=== PATIENT | female | born 1970 | race Asian ===

== ENCOUNTER 2019-10-30 21:28 | Emergency (ER) | payer SELFPAY ==
[2019-10-30 22:11] VITALS: BP 137/98
[2019-10-30 23:58] LABS: ABSOLUTE LYMPHOCYTES (AUTO) 2.5 10^3/uL (0.5-4.7); ABSOLUTE MONOCYTES (AUTO) 0.4 10^3/uL (0.1-1.4); ABSOLUTE NEUT (AUTO) 5.2 10^3/uL (1.7-8.2); BASOPHILS % (AUTO) 0.3 % (0-2); EOSINOPHILS % (AUTO) 0.5 % (0-6); HEMATOCRIT 45.7 % (36.0-47.0); HEMOGLOBIN 16.4 g/dL (12.0-15.5); LYMPHOCYTES % (AUTO) 30.4 % (13-45); MEAN CORPUSCULAR HEMOGLOBIN 33.1 pg (27.0-33.4); MEAN CORPUSCULAR HGB CONC 35.9 g/dL (32.0-36.0); MEAN CORPUSCULAR VOLUME 92 fl (80-97); MONOCYTES % (AUTO) 4.6 % (3-13); PLATELET COUNT 245 10^3/uL (150-450); RED BLOOD COUNT 4.96 10^6/uL (3.72-5.28); RED CELL DISTRIBUTION WIDTH 15.6 % (11.5-14.0); SEGMENTED NEUTROPHILS % (AUTO) 64.2 % (42-78); TOTAL CELLS COUNTED % (AUTO) 100 %; WHITE BLOOD COUNT 8.2 10^3/uL (4.0-10.5)
[2019-10-31] MEDS ORDERED: NORMAL SALINE 1000 ML 1,000 ML IV ONE (00:27)
--- NOTE | 2019-10-31 00:30 | ER Document Report ---
ED Medical Screen (RME) - General Chief Complaint: Abdominal Pain Stated Complaint: CHEST PAIN, ABDOMINAL PAIN Time Seen by Provider: 10/30/19 23:52 Primary Care Provider: MARYANA ROMERO MD [Primary Care Provider] - Follow up as needed Notes: Patient is a 49-year-old female who presents to the emergency department with a chief complaint of chest pain, body aches, diarrhea, and generalized malaise. 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 Patient states that she has been around a lot of sick contacts. States that her entire abdomen hurts. Exam: Soft, mildly tender generalized abdomen. I have greeted and performed a rapid initial assessment of this patient. A comprehensive ED assessment and evaluation of the patient, analysis of test results and completion of medical decision making process will be conducted by an additional ED providers. TRAVEL OUTSIDE OF THE [place] IN LAST 30 DAYS: No - Related Data Allergies/Adverse Reactions: No Known Allergies Allergy (Unverified 10/31/19 00:19) Home Medications: GERD. PEPSID. NOVAX. HCTZ. MOTOPROLOL. XANAX Past Medical History - Social History Frequency of alcohol use: None Drug Abuse: None Physical Exam - Vital signs Vitals: Temp Pulse Resp BP Pulse Ox 98.1 F 73 18 137/98 H 100 10/30/19 22:10 10/30/19 22:10 10/30/19 22:10 10/30/19 22:10 10/30/19 22:10 Course - Vital Signs Vital signs: Temp Pulse Resp BP Pulse Ox 98.1 F 73 18 137/98 H 100 10/30/19 22:10 10/30/19 22:10 10/30/19 22:10 10/30/19 22:10 10/30/19 22:10 - Laboratory Result Diagrams: 10/30/19 23:25 10/30/19 23:25 Laboratory results interpreted by me: 10/30/19 23:25 Hgb 16.4 H RDW 15.6 H Doctor's Discharge - Discharge Referrals: MARYANA ROMERO MD [Primary Care Provider] - Follow up as needed
[2019-10-31 01:21] LABS: ALBUMIN 4.9 g/dL (3.5-5.0); ALKALINE PHOSPHATASE 147 U/L (38-126); ANION GAP 13 (5-19); ASPARTATE AMINO TRANSFERASE 368 U/L (14-36); BILIRUBIN,DIRECT 0.5 mg/dL (0.0-0.4); BLOOD UREA NITROGEN 15 mg/dL (7-20); CARBON DIOXIDE 28 mmol/L (22-30); CHLORIDE 95 mmol/L (98-107); CREATINE KINASE 280 U/L (30-135); GLUCOSE 114 mg/dL (75-110); POTASSIUM 3.9 mmol/L (3.6-5.0); TOTAL PROTEIN 9.3 g/dL (6.3-8.2)
--- NOTE | 2019-10-31 22:21 | EKG REPORT ---
SEVERITY:- NORMAL ECG - SINUS RHYTHM : Confirmed by: Rosemary Pereyra 31-Oct-2019 22:20:41
== END 2019-10-31 03:55 | disposition left against medical advice (07) ==
LOC: ER 21:28
DX: Z53.21 Procedure and treatment not carried out due to patient leaving prior to being seen by health care provider (principal); R10.9 Unspecified abdominal pain; R07.9 Chest pain, unspecified; M79.10 Myalgia, unspecified site; R19.7 Diarrhea, unspecified; R53.81 Other malaise; R10.84 Generalized abdominal pain; Z79.899 Other long term (current) drug therapy
CPT/HCPCS: 36415; 80053; 80307; 82550; 82553; 83690; 84484; 85025; 93005; 93010; 99281

== ENCOUNTER 2019-11-14 10:56 | Emergency (ER) | payer SELFPAY ==
--- NOTE | 2019-11-14 11:55 | ER Document Report ---
ED Medical Screen (RME) - General Chief Complaint: Cough Stated Complaint: COUGH Time Seen by Provider: 11/14/19 11:54 Primary Care Provider: MARYANA ROMERO MD [Primary Care Provider] - Follow up as needed Mode of Arrival: Ambulatory Information source: Patient Notes: 49-year-old female presented to ED for complaint of sick for 2 weeks. She states that she was here 2 weeks ago she was seen in the triage area and did not see in the back because she she left after waiting along. Patient is very angry and arguing that she has the couple of hours. I am trying to explain to her that she did have elevated liver enzymes and lipase last time we will redo her lab work and have her seen by 1 of the providers. I have greeted and performed a rapid initial assessment of this patient. A comprehensive ED assessment and evaluation of the patient, analysis of test results and completion of medical decision making process will be conducted by an additional ED providers. TRAVEL OUTSIDE OF THE [place] IN LAST 30 DAYS: No - Related Data Allergies/Adverse Reactions: No Known Allergies Allergy (Unverified 10/31/19 00:19) Physical Exam - Vital signs Vitals: Temp Pulse Resp BP Pulse Ox 97.6 F 100 16 141/94 H 98 11/14/19 11:44 11/14/19 11:44 11/14/19 11:44 11/14/19 11:44 11/14/19 11:44 Course - Vital Signs Vital signs: Temp Pulse Resp BP Pulse Ox 97.6 F 100 16 141/94 H 98 11/14/19 11:44 11/14/19 11:44 11/14/19 11:44 11/14/19 11:44 11/14/19 11:44 Doctor's Discharge - Discharge Referrals: MARYANA ROMERO MD [Primary Care Provider] - Follow up as needed
[2019-11-14 12:50] LABS: ABSOLUTE BASOPHILS # (AUTO) 0.1 10^3/uL (0.0-0.2); ABSOLUTE LYMPHOCYTES (AUTO) 3.2 10^3/uL (0.5-4.7); ABSOLUTE MONOCYTES (AUTO) 0.3 10^3/uL (0.1-1.4); ABSOLUTE NEUT (AUTO) 2.2 10^3/uL (1.7-8.2); BASOPHILS % (AUTO) 1.8 % (0-2); EOSINOPHILS % (AUTO) 0.1 % (0-6); HEMATOCRIT 43.3 % (36.0-47.0); HEMOGLOBIN 14.6 g/dL (12.0-15.5); LYMPHOCYTES % (AUTO) 54.9 % (13-45); MEAN CORPUSCULAR HEMOGLOBIN 31.7 pg (27.0-33.4); MEAN CORPUSCULAR HGB CONC 33.8 g/dL (32.0-36.0); MEAN CORPUSCULAR VOLUME 94 fl (80-97); MONOCYTES % (AUTO) 5.7 % (3-13); PLATELET COUNT 413 10^3/uL (150-450); RED BLOOD COUNT 4.62 10^6/uL (3.72-5.28); RED CELL DISTRIBUTION WIDTH 15.6 % (11.5-14.0); SEGMENTED NEUTROPHILS % (AUTO) 37.5 % (42-78); TOTAL CELLS COUNTED % (AUTO) 100 %; WHITE BLOOD COUNT 5.9 10^3/uL (4.0-10.5)
[2019-11-14 13:08] LABS: ALKALINE PHOSPHATASE 95 U/L (38-126); ANION GAP 13 (5-19); ASPARTATE AMINO TRANSFERASE 97 U/L (14-36); BILIRUBIN,DIRECT 0.1 mg/dL (0.0-0.4); BILIRUBIN,TOTAL 0.5 mg/dL (0.2-1.3); BLOOD UREA NITROGEN 15 mg/dL (7-20); CALCIUM 10.4 mg/dL (8.4-10.2); CARBON DIOXIDE 33 mmol/L (22-30); CHLORIDE 98 mmol/L (98-107); GLUCOSE 141 mg/dL (75-110); POTASSIUM 4.4 mmol/L (3.6-5.0); TOTAL PROTEIN 9.1 g/dL (6.3-8.2)
--- NOTE | 2019-11-14 13:36 | RADIOLOGY REPORT (SQ) ---
EXAM DESCRIPTION: U/S ABDOMEN LTD W/DOPPLER COMPLETED DATE/TIME: 11/14/2019 1:13 pm REASON FOR STUDY: Elevated enzymes COMPARISON: None. TECHNIQUE: Dynamic and static grayscale images acquired of the abdomen and recorded on PACS. Additio nal selected color Doppler and spectral images recorded. LIMITATIONS: None. FINDINGS: PANCREAS: The visualized portions of the pancreas appear normal. LIVER: Increased echogenicity of the hepatic parenchyma compared to the adjacent renal parenchyma. LIVER VASCULATURE: Hepatopetal directional flow within the portal veins. GALLBLADDER: The gallbladder wall measures 2.8 mm and thickness. There is no cholelithiasis, sludge or pericholecystic fluid. ULTRASOUND-DETECTED BLAIR'S SIGN: Negative. INTRAHEPATIC DUCTS AND COMMON DUCT: The common bile duct measures 5 mm in diameter. The intrahepatic bile ducts are normal in caliber. INFERIOR VENA CAVA: Patent. AORTA: No aneurysm. RIGHT KIDNEY: The right kidney measures 9.4 cm in length. There is no hydronephrosis. PERITONEAL AND RIGHT PLEURAL SPACE: No ascites or effusions. OTHER: No other findings. IMPRESSION: 1. Increased echogenicity of the hepatic parenchyma. The finding is nonspecific and is typical in the setting of diffuse hepatocellular disease, most commonly hepatic steatosis. 2. Normal appearance of the gallbladder and right kidney. TECHNICAL DOCUMENTATION: JOB ID: [id number] 2010 [employer]- All Rights Reserved Reading location - IP/workstation name: [email or web address]
[2019-11-14 13:46] LABS: APPEARANCE,URINE CLEAR; BILIRUBIN,URINE NEGATIVE (NEGATIVE); COLOR,URINE STRAW; GLUCOSE, URINE NEGATIVE (NEGATIVE); KETONES,URINE NEGATIVE (NEGATIVE); PROTEIN,URINE NEGATIVE (NEGATIVE); URINE SPECIFIC GRAVITY 1.008; UROBILINOGEN,URINE NEGATIVE mg/dL (<2.0)
--- NOTE | 2019-11-14 14:11 | ER Document Report ---
ED General - General Chief Complaint: Cold Symptoms Stated Complaint: COUGH Time Seen by Provider: 11/14/19 11:54 Primary Care Provider: MARYANA ROMERO MD [Primary Care Provider] - Follow up as needed Mode of Arrival: Ambulatory TRAVEL OUTSIDE OF THE [place] IN LAST 30 DAYS: No COUNTRY TRAVELED TO/FROM: matt - [facility] Notes: Patient states that she has had cough cold and chills and that she has had this intermittently now for approximately 2 weeks. 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 Patient does not currently have any fever nor coughing. When she is had the cough is been nonproductive and dry. Patient cannot give me any reason why she may have coronavirus other than she is around homeless people. She has had no traveling or other exposures. No vomiting or diarrhea. 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 - Related Data Allergies/Adverse Reactions: No Known Allergies Allergy (Unverified 10/31/19 00:19) Past Medical History - General Information source: Patient - Social History Smoking Status: Never Smoker Frequency of alcohol use: None Drug Abuse: None Family History: Reviewed & Not Pertinent Patient has suicidal ideation: No Patient has homicidal ideation: No Review of Systems - Review of Systems Constitutional: Chills, Recent illness Cardiovascular: denies: Chest pain, Palpitations Respiratory: Cough, Short of breath -: Yes All other systems reviewed and negative Physical Exam - Vital signs Vitals: Temp Pulse Resp BP Pulse Ox 97.6 F 100 16 141/94 H 98 11/14/19 11:44 11/14/19 11:44 11/14/19 11:44 11/14/19 11:44 11/14/19 11:44 Interpretation: Normal - General General appearance: Appears well, Alert - HEENT Head: Normocephalic, Atraumatic Eyes: Normal Pupils: PERRL - Respiratory Respiratory status: No respiratory distress Chest status: Nontender Breath sounds: Normal Chest palpation: Normal - Cardiovascular Rhythm: Regular Heart sounds: Normal auscultation Murmur: No - Abdominal Inspection: Normal Distension: No distension Bowel sounds: Normal Tenderness: Nontender Organomegaly: No organomegaly - Back Back: Normal, Nontender - Extremities General upper extremity: Normal inspection, Nontender, Normal color, Normal ROM, Normal temperature General lower extremity: Normal inspection, Nontender, Normal color, Normal ROM, Normal temperature, Normal weight bearing. No: Doris's sign - Neurological Neuro grossly intact: Yes Cognition: Normal Orientation: AAOx4 Herbert Coma Scale Eye Opening: Spontaneous Herbert Coma Scale Verbal: Oriented [place] Coma Scale Motor: Obeys Commands Herbert Coma Scale Total: 15 Speech: Normal Motor strength normal: LUE, RUE, LLE, RLE Sensory: Normal - Psychological Associated symptoms: Normal affect, Normal mood - Skin Skin Temperature: Warm Skin Moisture: Dry Skin Color: Normal Course - Vital Signs Vital signs: Temp Pulse Resp BP Pulse Ox 97.6 F 100 16 141/94 H 98 11/14/19 11:44 11/14/19 11:44 11/14/19 11:44 11/14/19 11:44 11/14/19 11:44 - Laboratory Result Diagrams: 11/14/19 12:37 11/14/19 12:37 Laboratory results interpreted by me: 11/14/19 11/14/19 11/14/19 12:37 12:37 12:47 RDW 15.6 H Lymph % (Auto) 54.9 H Seg Neutrophils % 37.5 L Carbon Dioxide 33 H Glucose 141 H Calcium 10.4 H AST 97 H ALT 38 H Total Protein 9.1 H Urine Ascorbic Acid 20 H - Diagnostic Test Radiology reviewed: Image reviewed, Reports reviewed Discharge - Discharge Clinical Impression: Viral syndrome, Hepatic steatosis Condition: Stable Disposition: HOME, SELF-CARE Instructions: Viral Syndrome ([facility]) Additional Instructions: You have evidence of hepatic steatosis, otherwise known as "fatty liver". It is going to be very important that you have your primary care physician regularity monitor your liver function. Please contact your primary care provider as soon as possible to initiate the monitoring of your "fatty liver". Forms: Return to Work Referrals: MARYANA ROMERO MD [Primary Care Provider] - Follow up tomorrow
[2019-11-14 15:35] VITALS: BP 135/91
== END 2019-11-14 15:25 | disposition home or self-care (01) ==
LOC: ER 10:56
DX: B34.9 Viral infection, unspecified (principal); K76.0 Fatty (change of) liver, not elsewhere classified; R68.83 Chills (without fever); R05 Cough; R06.02 Shortness of breath
CPT/HCPCS: 36415; 76705; 80053; 81001; 83690; 85025; 93976; 99284

== ENCOUNTER 2019-11-17 16:36 | Emergency (ER) | payer SELFPAY ==
[2019-11-17] MEDS ORDERED: ONDANSETRON HCL INJ/PF 4 MG/2 ML SDV IV ONE ×2 (16:52→20:34)
[2019-11-17] MEDS ORDERED: NORMAL SALINE 1000 ML 1,000 ML IV ONE ×2 (16:52→20:15)
--- NOTE | 2019-11-17 16:55 | ER Document Report ---
ED Medical Screen (RME) - General Stated Complaint: COUGH/CONGESTION/NAUSEA Time Seen by Provider: 11/17/19 16:46 Notes: HPI: 49-year-old female presenting to the emergency department for reevaluation of nausea vomiting diarrhea as well as cough. Patient states she was seen here 3 days ago for same complaint feels no better. Does not have a primary care provider for follow-up. States roommate is sick with similar symptoms. I have greeted and performed a rapid initial assessment of this patient. A comprehensive ED assessment and evaluation of the patient, analysis of test results and completion of the medical decision making process will be conducted by additional ED providers PHYSICAL EXAMINATION: GENERAL: Well-appearing, well-nourished and in no acute distress. HEAD: Atraumatic, normocephalic. EYES: sclera anicteric, conjunctiva are normal. ENT: Moist mucous membranes. NECK: Normal range of motion LUNGS: Normal work of breathing, decreased lung sounds bilaterally with congested cough noted HEART: 2+ radial pulses bilaterally, mild tachycardia ABD: limited by positioning for exam in triage. Mild generalized abdominal soreness on palpation EXTREMITIES: no pitting or edema. No cyanosis. NEUROLOGICAL: No focal neurological deficits. Moves all extremities spontaneously and on command. PSYCH: Normal mood, normal affect. SKIN: Warm, Dry, normal turgor, no rashes or lesions noted. TRAVEL OUTSIDE OF THE [place] IN LAST 30 DAYS: No COUNTRY TRAVELED TO/FROM: matt - Related Data Allergies/Adverse Reactions: No Known Allergies Allergy (Verified 11/17/19 16:44) Physical Exam - Vital signs Vitals: Temp Pulse Resp BP Pulse Ox 98.2 F 116 H 16 139/95 H 97 11/17/19 16:44 11/17/19 16:44 11/17/19 16:44 11/17/19 16:44 11/17/19 16:44 Course - Vital Signs Vital signs: Temp Pulse Resp BP Pulse Ox 98.2 F 116 H 16 139/95 H 97 11/17/19 16:44 11/17/19 16:44 11/17/19 16:44 11/17/19 16:44 11/17/19 16:44
[2019-11-17 17:35] LABS: ABSOLUTE BASOPHILS # (AUTO) 0.1 10^3/uL (0.0-0.2); ABSOLUTE LYMPHOCYTES (AUTO) 1.5 10^3/uL (0.5-4.7); ABSOLUTE MONOCYTES (AUTO) 0.3 10^3/uL (0.1-1.4); ABSOLUTE NEUT (AUTO) 2.8 10^3/uL (1.7-8.2); BASOPHILS % (AUTO) 1.2 % (0-2); EOSINOPHILS % (AUTO) 0.3 % (0-6); HEMATOCRIT 43.6 % (36.0-47.0); HEMOGLOBIN 14.9 g/dL (12.0-15.5); LYMPHOCYTES % (AUTO) 31.6 % (13-45); MEAN CORPUSCULAR HEMOGLOBIN 31.6 pg (27.0-33.4); MEAN CORPUSCULAR HGB CONC 34.1 g/dL (32.0-36.0); MEAN CORPUSCULAR VOLUME 93 fl (80-97); MONOCYTES % (AUTO) 6.3 % (3-13); PLATELET COUNT 305 10^3/uL (150-450); RED CELL DISTRIBUTION WIDTH 14.9 % (11.5-14.0); SEGMENTED NEUTROPHILS % (AUTO) 60.6 % (42-78); TOTAL CELLS COUNTED % (AUTO) 100 %; WHITE BLOOD COUNT 4.7 10^3/uL (4.0-10.5)
[2019-11-17 17:51] LABS: A TYPE INFLUENZA AG NEGATIVE (NEGATIVE); ALBUMIN 4.7 g/dL (3.5-5.0); ALKALINE PHOSPHATASE 105 U/L (38-126); ANION GAP 12 (5-19); B INFLUENZA AG NEGATIVE (NEGATIVE); BILIRUBIN,DIRECT 0.7 mg/dL (0.0-0.4); BLOOD UREA NITROGEN 15 mg/dL (7-20); CALCIUM 10.1 mg/dL (8.4-10.2); CARBON DIOXIDE 30 mmol/L (22-30); CHLORIDE 96 mmol/L (98-107); GLUCOSE 207 mg/dL (75-110); POTASSIUM 4.4 mmol/L (3.6-5.0); TOTAL PROTEIN 8.7 g/dL (6.3-8.2)
--- NOTE | 2019-11-17 17:53 | RADIOLOGY REPORT (SQ) ---
EXAM DESCRIPTION: CHEST 2 VIEWS COMPLETED DATE/TIME: 11/17/2019 5:39 pm REASON FOR STUDY: cough COMPARISON: None. TECHNIQUE: Frontal and lateral radiographic views of the chest acquired. NUMBER OF VIEWS: Two view. LIMITATIONS: None. FINDINGS: LUNGS AND PLEURA: No pneumothorax. No consolidation or pleural effusion. MEDIASTINUM AND HILAR STRUCTURES: No contour abnormalities. HEART AND VASCULAR STRUCTURES: Heart normal size. BONES: No acute findings. HARDWARE: None in the chest. OTHER: No other significant finding. IMPRESSION: NO ACUTE FINDINGS. TECHNICAL DOCUMENTATION: JOB ID: [id number] [place]-72 2010 [employer]- All Rights Reserved Reading location - IP/workstation name: [email or web address]
[2019-11-17 18:20] LABS: ASPARTATE AMINO TRANSFERASE 2453 U/L (14-36)
[2019-11-17 19:00] LABS: ACETAMINOPHEN < 10 ug/mL (10-30); ALCOHOL 148 mg/dL (NONE DETECTED)
[2019-11-17 20:32] LABS: INTERNATIONAL RATION (INR) 1.46; PROTHROMBIN TIME 17.9 SEC (11.4-15.4)
[2019-11-17 20:33] LABS: PARTIAL THROMBOPLASTIN TIME 39.5 SEC (23.5-35.8)
[2019-11-17] MEDS ORDERED: MORPHINE SULFATE 10 MG/ML INJ IV ONE (20:33)
--- NOTE | 2019-11-17 20:45 | RADIOLOGY REPORT (SQ) ---
EXAM DESCRIPTION: [facility]: US ABDOMEN LIMITED CLINICAL HISTORY: 49 years Female; abdominal pain/elevated LFTs; TECHNIQUE: Right upper quadrant ultrasound was performed. COMPARISON: None. FINDINGS: Pancreas: Visualized portions are unremarkable. Liver: 18 cm long, slightly echogenic. No ductal distention or focal lesion. Portal venous flow is hepatopedal, normal. Gallbladder: normal with no gallstones or sonographic evidence for acute cholecystitis. No pericholecystic fluid. No sonographic Whitaker's sign. Common bile duct: 3 mm. Right kidney: 11.7 cm long. No hydronephrosis. IMPRESSION: 1. Echogenic liver, suggesting hepatic steatosis. 2. Otherwise unremarkable right upper quadrant ultrasound
--- NOTE | 2019-11-18 00:06 | RADIOLOGY REPORT (SQ) ---
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 COMPARISON: None available TECHNIQUE: Axial contiguous images were obtained from the lung bases to the proximal femurs with intravenous intravenous contrast administered. Oral contrast was also given to the patient. Sagittal and coronal reconstructions were also obtained and reviewed. This exam was performed according to our departmental dose-optimization program, which includes automated exposure control, adjustment of the mA and/or KV according to the patient's size and/or use of iterative reconstruction technique. FINDINGS: No focal consolidative airspace opacities are seen. No discrete pleural effusion is seen. The visualized hepatic parenchyma is appears diffusely low in attenuation. No focal enhancing lesion is seen. The gallbladder demonstrates no evidence of calcified gallstones The spleen, pancreas, and adrenals are normal in size and contour. The kidneys demonstrate no evidence of hydronephrosis. Bladder is minimally distended, but grossly appears unremarkable. The uterus is surgically absent. The stomach is not well distended. The small bowel loops appear unremarkable. No pericolonic inflammatory stranding is seen. The appendix appears unremarkable. There is no evidence of pneumoperitoneum or free fluid. The aorta and IVC appear normal in size. No significantly enlarged lymph nodes are seen in the abdomen or pelvis. Review of the bone show no evidence of any suspicious lytic or blastic lesions. IMPRESSION: No acute process is seen within the abdomen or pelvis. Hepatic steatosis
[2019-11-18] MEDS ORDERED: IBUPROFEN 800 MG TABLET PO ONE (00:18)
[2019-11-18 00:23] VITALS: BP 127/80
[2019-11-18] MEDS ORDERED: PANTOPRAZOLE SODIUM 40 MG TABLET.DR PO ONE (01:13)
[2019-11-18] MEDS ORDERED: TRAMADOL HCL 50 MG TABLET PO ONE (01:13)
--- NOTE | 2019-11-18 13:35 | ER Document Report ---
Entered by ANGELINA GRAJEDA SCRIBE 11/17/19 1816 Acting as scribe for:JOE IRIZARRY MD ED General <JOSSUE CARRERA IV - Last Filed: 11/18/19 00:19> - General Mode of Arrival: Ambulatory Information source: Patient TRAVEL OUTSIDE OF THE [place] IN LAST 30 DAYS: No <JOE IRIZARRY - Last Filed: 11/18/19 13:35> - General Chief Complaint: Flu Symptoms Stated Complaint: COUGH/CONGESTION/NAUSEA Time Seen by Provider: 11/17/19 16:46 Notes: This 49-year-old female patient presents to the emergency department today with complaints of several weeks of nausea, vomiting, chills, body aches, and a cough. Patient has been seen here in this emergency department twice since her symptoms began - her first visit was on 10/31 and she eloped after being triaged. She was seen again on 11/13 and was diagnosed with a viral syndrome as well as a fatty liver. Patient continues to perseverate on coronavirus today which she also did on her visit on 11/13. Patient told staff here on 11/13 that she works at the [employer] and many of those patients are homeless so she "knows they have to have coronavirus." Patient states that she has been to [place], [place], and [place] in her life so she is certain she has coronavirus although she has not been to any of these places in the last six months. (JOE IRIZARRY) - Related Data Allergies/Adverse Reactions: No Known Allergies Allergy (Verified 11/17/19 16:44) Past Medical History - Social History Smoking Status: Never Smoker Chew tobacco use (# tins/day): No Frequency of alcohol use: Social Drug Abuse: None Family History: Reviewed & Not Pertinent Patient has suicidal ideation: No Patient has homicidal ideation: No <JOE IRIZARRY - Last Filed: 11/18/19 13:35> Review of Systems - Review of Systems Constitutional: See HPI, Chills, Fever EENT: No symptoms reported Cardiovascular: No symptoms reported Respiratory: See HPI, Cough Gastrointestinal: See HPI, Nausea, Vomiting Genitourinary: No symptoms reported Female Genitourinary: No symptoms reported Musculoskeletal: No symptoms reported Skin: No symptoms reported Hematologic/Lymphatic: No symptoms reported Neurological/Psychological: No symptoms reported -: Yes All other systems reviewed and negative <EDIEJOE Evie - Last Filed: 11/18/19 13:35> Physical Exam <EDIEJOE Evie - Last Filed: 11/18/19 13:35> - Vital signs Vitals: Temp Pulse Resp BP Pulse Ox 98.2 F 116 H 16 139/95 H 97 11/17/19 16:44 11/17/19 16:44 11/17/19 16:44 11/17/19 16:44 11/17/19 16:44 - Notes Notes: Physical Exam: General: Alert. Argumentative, uncooperative. HEENT: Normocephalic. Atraumatic. PERRL. Extraocular movements intact. Oropharynx clear. Neck: Supple. Non-tender. Respiratory: No respiratory distress. Clear and equal breath sounds bilaterally. Cardiovascular: Regular rate and rhythm. Abdominal: Obese. Non-tender. No distension. Normal Bowel Sounds. Back: No gross abnormalities. Extremities: Moves all four extremities. Upper extremities: Normal inspection. Normal ROM. Lower extremities: Normal inspection. No edema. Normal ROM. Neurological: Normal cognition. AAOx4. Normal speech. Psychological: Uncooperative, perseverates on coronavirus, argumentative. Skin: Warm. Dry. Normal color. (JOE IRIZARRY) Course - Laboratory Result Diagrams: 11/17/19 17:05 11/17/19 17:05 <JOSSUE CARRERA IV - Last Filed: 11/18/19 00:19> - Laboratory Result Diagrams: 11/17/19 17:05 11/17/19 17:05 - Transfer of Care Care transferred to following provider: Transfer care to Dr. Jossue roger <JOE IRIZARRY - Last Filed: 11/18/19 13:35> - Re-evaluation Re-evalutation: 11/18/19 00:20 Results of parasite screen and CT scan of the abdomen discussed with the patient. All questions were answered prior to discharge. Emergency signs and symptoms, reasons to return to the emergency department discussed with patient. (JOSSUE CARRERA IV) 11/18/19 13:29 Today I received a call from hematology laboratory in the hospital regarding patient. The official read is still not completed on the blood parasite screen. The pathologist today read the blood parasite screen and suspects that patient may have malaria. The plan that they have is for patient's smear to be reexamined by a different pathologist tomorrow and to send it out to lab core further over read analysis of the blood smear. Meanwhile patient has a known history of malaria in the past based on her history to us and most likely patient does have malaria if our pathologist is suspicious that they saw some parasites within the red blood cells. Plan is to call patient back into the department and to begin her therapy necessary to treat her malaria problem. This information has been shared with charge nurse who will call patient to return to the emergency department. (JOE IRIZARRY) - Vital Signs Vital signs: Temp Pulse Resp BP Pulse Ox 98.7 F 86 14 127/80 H 98 11/18/19 00:21 11/18/19 00:21 11/18/19 00:21 11/18/19 00:21 11/18/19 00:21 - Laboratory Laboratory results interpreted by me: 11/17/19 11/17/19 11/17/19 17:05 17:05 17:05 RDW 14.9 H PT APTT Chloride 96 L Glucose 207 H Lactic Acid Direct Bilirubin 0.7 H AST 2453 H ALT 861 H Total Protein 8.7 H Lipase 501.7 H Acetaminophen 11/17/19 11/17/19 11/17/19 17:05 17:05 21:00 RDW PT 17.9 H APTT 39.5 H Chloride Glucose Lactic Acid 2.3 H Direct Bilirubin AST ALT Total Protein Lipase Acetaminophen < 10 L Discharge <JOSSUE CARRERA IV - Last Filed: 11/18/19 00:19> <JOE IRIZARRY - Last Filed: 11/18/19 13:35> - Discharge Clinical Impression: Abdominal pain, Serum lipase elevation, Fatty liver, Blood-alcohol level elevation, Elevated liver function tests Condition: Stable Disposition: HOME, SELF-CARE Additional Instructions: Return to the Emergency Department without delay if any worse. HOME CARE INSTRUCTIONS & INFORMATION: Thank you for choosing us for your medical needs. We hope you're satisfied with the care you received. After you leave, you must properly care for your problem and, at the same time, observe its progress. Any condition can change. Some illnesses can change rapidly over hours or days. If your condition worsens, return to the Emergency Department or see your physician promptly. ABOUT YOUR X-RAYS AND EKG'S: If you had an EKG or X-rays taken, they have been read by the Emergency Physician. The X-rays and EKG's will also be read by a Radiologist or Morning News Producer within 24 hours. If discrepancies are noted, you will be notified by telephone. Please be certain the ED has a correct telephone number & address where you can be reached. Also, realize that some fractures or abnormalities do not show up on initial X-rays. If your symptoms continue, see your physician. ABOUT YOUR LABORATORY TEST: If you had laboratory tests, the results have been reviewed by the Emergency Physician. Some test results (for example cultures) may not be available for several days. You will be contacted if any test result shows you need additional treatment. Please be certain the ED has a correct telephone number and address where you can be reached. ABOUT YOUR MEDICATIONS: You will receive instructions on how to take your medicine on the prescription label you receive. Additional information may be provided by the Pharmacy. If you have questions afterwards, call the ED for clarification or further instructions. Some prescribed medications may cause drowsiness. Do not perform tasks such as driving a car or operating machinery without consulting your Pharmacist. If you feel you need a refill of pain medication, your condition will need re-evaluation. Please do not call for a refill of any medication. ABOUT YOUR SIGNATURE: Signature of this document acknowledges to followin. Understanding that you received emergency treatment and that you may be released before al medical problems are known or treated. Please be certain the ED has a correct phone number & address where you can be reached. 2. Acknowledgement that you will arrange for follow-up care as recommended. 3. Authorization for the Emergency Physician to provide information to your follow-up Physician in order to maximize your care. AT ANY TIME, IF YOUR SYMPTOMS CHANGE SIGNIFICANTLY OR WORSEN OR YOU DEVELOP NEW SYMPTOMS, RETURN TO THE EMERGENCY DEPARTMENT IMMEDIATELY FOR RE-EVALUATION. OUR GOAL IS TO PROVIDE EXCELLENT MEDICAL CARE! WE HOPE THAT WE HAVE MET YOUR EXPECTATIONS DURING YOUR EMERGENCY DEPARTMENT VISIT AND THAT YOU FEEL YOU HAVE RECEIVED EXCELLENT CARE! I personally performed the services described in the documentation, reviewed and edited the documentation which was dictated to the scribe in my presence, and it accurately records my words and actions.
[2019-11-19 11:40] LABS: BLOOD PARASITE SCREEN RESULT NO ORGANISMS SEEN; BLOOD PARASITE THICK SMEAR NO ORGANISMS SEEN
[2019-11-19 11:42] LABS: PATH REVIEW PATHOLOGIST REVIEWED
== END 2019-11-18 01:30 | disposition home or self-care (01) ==
LOC: ER 16:36
DX: R94.5 Abnormal results of liver function studies (principal); K76.0 Fatty (change of) liver, not elsewhere classified; R05 Cough; R11.0 Nausea
CPT/HCPCS: 96376; 99284; 96361; 96374; 96375; 36415; 80307 ×2; 83605; 83690; 85025; 87207; 87015; 85610; 85730; 80053; 87804; 71046; 76705; 74177; J2270; J2405; J7030; J3490

== ENCOUNTER 2019-11-18 17:17 | Emergency (ER) | payer SELFPAY ==
--- NOTE | 2019-11-18 17:33 | ER Document Report ---
ED General - General Chief Complaint: Abnormal Lab Results Stated Complaint: ABNORMAL LABS Time Seen by Provider: 11/18/19 17:30 Mode of Arrival: Ambulatory Information source: Patient Notes: This 49-year-old woman presents to the emergency department with a history of seen in the emergency department on 11/17/2019 with feeling poorly, fever chills sweats, body aches and pains with elevated liver enzymes found on the laboratory evaluation. Patient has a known history of malaria in the past and based on her history to us the symptoms are suggestive of a flareup of malaria. She is from the [facility] area. Dr. Perez received a call from our pathologist that the smear is suspicious for the malaria parasites within the red blood cells. The patient was called back to the emergency department for further evaluation and treatment. TRAVEL OUTSIDE OF THE [place] IN LAST 30 DAYS: No COUNTRY TRAVELED TO/FROM: [place] - Related Data Allergies/Adverse Reactions: No Known Allergies Allergy (Verified 11/18/19 17:47) Past Medical History - General Information source: Patient - Social History Smoking Status: Unknown if Ever Smoked Family History: Reviewed & Not Pertinent Review of Systems - Review of Systems Notes: Constitutional: + Fever + chills, + sweats. HENT: Negative for sore throat. Eyes: Negative for visual changes. Cardiovascular: Negative for chest pain. Respiratory: Negative for shortness of breath. Gastrointestinal: Negative for abdominal pain, vomiting or diarrhea. Genitourinary: Negative for dysuria. Musculoskeletal: Negative for back pain. Skin: Negative for rash. Neurological: Negative for headaches, weakness or numbness. 10 point ROS negative except as marked above and in HPI. Physical Exam - Vital signs Vitals: Temp Pulse Resp BP Pulse Ox 98.1 F 68 18 120/84 100 11/18/19 21:14 11/18/19 21:14 11/18/19 21:14 11/18/19 21:14 11/18/19 21:14 - Notes Notes: PHYSICAL EXAMINATION: Physical Exam: General: Well-nourished well-developed 49-year-old woman in no acute distress HEENT: NC/AT, pupils equal round and reactive to light, MM moist,nares clear, oropharynx clear, airway patent Neck: supple, no adenopathy, no masses. Good range of motion Lungs: clear, no wheezing, no rales no rhonchi CVS: Regular rate and rhythm no murmur gallop or rub Abdomen: Soft, active, nontender, no masses, no hepatosplenomegaly Ext: No edema, clubbing or cyanosis. Neuro: Alert and responsive, moving all 4 extremities on command, cranial nerves intact, no focal findings Skin: Intact no open lesions, no rash PSYCH: Normal mood, normal affect. Course - Re-evaluation Re-evalutation: 11/18/19 21:25 I discussed the patient's case with the infectious disease on-call physician at [facility]. He states that the liver enzymes are just reflective of the patient's parasitic infection and hemolysis of red blood cells. There is a interval drop in the hemoglobin that can be seen going back to October. He is suggested patient be treated with a quinine and doxycycline with primaquin a terminal prophylaxis. 11/18/19 23:06 Discussed the plan with the patient and she is agreeable with taking quinine and doxycycline with follow-up as an outpatient for liver functions and once she has normalized a terminal prophylaxis with primaquin - Vital Signs Vital signs: Temp Pulse Resp BP Pulse Ox 98.1 F 68 18 120/84 100 11/18/19 21:14 11/18/19 21:14 11/18/19 21:14 11/18/19 21:14 11/18/19 21:14 - Laboratory Result Diagrams: 11/18/19 16:17 11/18/19 16:17 Laboratory results interpreted by me: 11/18/19 11/18/19 16:17 16:17 WBC 3.0 L Hct 35.7 L RDW 14.6 H Sodium 130.9 L Chloride 94 L Glucose 160 H Direct Bilirubin 0.5 H AST 1635 H ALT 842 H I have reviewed laboratory data and used this information for the treatment decisions regarding the patient. Discharge - Discharge Clinical Impression: Malaria, Elevated liver function tests Condition: Good Disposition: HOME, SELF-CARE Additional Instructions: You are diagnosed with malaria in the emergency department tonight and prescriptions for quinine and doxycycline are given. He will use quinine sulfate 1000 mg per 8 hours x 3 days, use the doxycycline 100 mg twice daily for 7 days. Please follow-up with an outpatient physician for liver enzymes. Do not use alcohol while taking these medications. After treatment,Primaquin 26.3 mg for 14 days may be taken as terminal prophylaxis. HOME CARE INSTRUCTIONS & INFORMATION: Thank you for choosing us for your me dical needs. We hope you're satisfied with the care you received. After you leave, you must properly care for your problem and, at the same time, observe its progress. Any condition can change. Some illnesses can change rapidly over hours or days. If your condition worsens, return to the Emergency Department or see your physician promptly. ABOUT YOUR X-RAYS AND EKG'S: If you had an EKG or X-rays taken, they have been read by the Emergency Physician. The X-rays and EKG's will also be read by a Radiologist or [employer] Trimmer within 24 hours. If discrepancies are noted, you will be notified by telephone. Please be certain the ED has a correct telephone number & address where you can be reached. Also, realize that some fractures or abnormalities do not show up on initial X-rays. If your symptoms continue, see your physician. ABOUT YOUR LABORATORY TEST: If you had laboratory tests, the results have been reviewed by the Emergency Physician. Some test results (for example cultures) may not be available for several days. You will be contacted if any test result shows you need additional treatment. Please be certain the ED has a correct telephone number and address where you can be reached. ABOUT YOUR MEDICATIONS: You will receive instructions on how to take your medicine on the prescription label you receive. Additional information may be provided by the Pharmacy. If you have questions afterwards, call the ED for clarification or further instructions. Some prescribed medications may cause drowsiness. Do not perform tasks such as driving a car or operating machinery without consulting your Pharmacist. If you feel you need a refill of pain medication, your condition will need re-evaluation. Please do not call for a refill of any medication. ABOUT YOUR SIGNATURE: Signature of this document acknowledges to followin. Understanding that you received emergency treatment and that you may be released before al medical problems are known or treated. Please be certain the ED has a correct phone number & address where you can be reached. 2. Acknowledgement that you will arrange for follow-up care as recommended. 3. Authorization for the Emergency Physician to provide information to your follow-up Physician in order to maximize your care. AT ANY TIME, IF YOUR SYMPTOMS CHANGE SIGNIFICANTLY OR WORSEN OR YOU DEVELOP NEW SYMPTOMS, RETURN TO THE EMERGENCY DEPARTMENT IMMEDIATELY FOR RE-EVALUATION. OUR GOAL IS TO PROVIDE EXCELLENT MEDICAL CARE! WE HOPE THAT WE HAVE MET YOUR EXPECTATIONS DURING YOUR EMERGENCY DEPARTMENT VISIT AND THAT YOU FEEL YOU HAVE RECEIVED EXCELLENT CARE! Prescriptions: Doxycycline Monohydrate 100 mg PO BID #14 capsule Primaquine Phosphate [Primaquine 26.3 mg Tablet (15 mg Base)] 26.3 mg PO DAILY #14 tablet Quinine Sulfate 3 tab-cap PO Q8 #27 capsule Referrals: [facility] [Provider Group] - Follow up as needed
[2019-11-18 18:31] LABS: ABSOLUTE LYMPHOCYTES (AUTO) 0.8 10^3/uL (0.5-4.7); ABSOLUTE MONOCYTES (AUTO) 0.2 10^3/uL (0.1-1.4); BASOPHILS % (AUTO) 0.9 % (0-2); EOSINOPHILS % (AUTO) 1.6 % (0-6); HEMATOCRIT 35.7 % (36.0-47.0); LYMPHOCYTES % (AUTO) 27.4 % (13-45); MEAN CORPUSCULAR HEMOGLOBIN 32.9 pg (27.0-33.4); MEAN CORPUSCULAR HGB CONC 35.9 g/dL (32.0-36.0); MEAN CORPUSCULAR VOLUME 92 fl (80-97); MONOCYTES % (AUTO) 5.5 % (3-13); PLATELET COUNT 202 10^3/uL (150-450); RED BLOOD COUNT 3.89 10^6/uL (3.72-5.28); RED CELL DISTRIBUTION WIDTH 14.6 % (11.5-14.0); SEGMENTED NEUTROPHILS % (AUTO) 64.6 % (42-78); TOTAL CELLS COUNTED % (AUTO) 100 %
[2019-11-18 18:40] LABS: HEMOGLOBIN 12.8 g/dL (12.0-15.5)
[2019-11-18 18:47] LABS: ALBUMIN 4.1 g/dL (3.5-5.0); ALKALINE PHOSPHATASE 104 U/L (38-126); ANION GAP 9 (5-19); BILIRUBIN,DIRECT 0.5 mg/dL (0.0-0.4); BILIRUBIN,TOTAL 0.9 mg/dL (0.2-1.3); BLOOD UREA NITROGEN 9 mg/dL (7-20); CALCIUM 9.5 mg/dL (8.4-10.2); CARBON DIOXIDE 28 mmol/L (22-30); CHLORIDE 94 mmol/L (98-107); GLUCOSE 160 mg/dL (75-110)
[2019-11-18 19:10] LABS: ASPARTATE AMINO TRANSFERASE 1635 U/L (14-36)
[2019-11-18 21:16] VITALS: BP 120/84
[2019-11-18] MEDS ORDERED: [UNRECOGNIZED DRUG - OTHER] PO STA (21:28)
[2019-11-18] MEDS ORDERED: DOXYCYCLINE HYCLATE 100 MG TABLET PO ONE (21:29)
[2019-11-18] MEDS ORDERED: QUININE SULFATE 324 MG CAPSULE PO ONE (21:34)
[2019-11-18] MEDS ORDERED: QUININE SULFATE 324 MG CAPSULE ONE (21:59)
== END 2019-11-18 23:29 | disposition home or self-care (01) ==
LOC: ER 17:17
DX: B54 Unspecified malaria (principal); R74.8 Abnormal levels of other serum enzymes
CPT/HCPCS: 99283; 36415; 85025; 80053; J3490

== ENCOUNTER 2019-11-19 21:10 | Emergency (ER) | payer SELFPAY ==
--- NOTE | 2019-11-19 22:49 | ER Document Report ---
ED Medical Screen (RME) - General Chief Complaint: Weakness Stated Complaint: WEAKNESS TRAVEL OUTSIDE OF THE [place] IN LAST 30 DAYS: No COUNTRY TRAVELED TO/FROM: [place] - HPI Notes: 11/19/19 22:48 Patient is a 49-year-old female who was diagnosed malaria and started on quinine and doxycycline yesterday presents complaining of having generalized pain. Dr. Anton called [facility] infectious disease and discussed case with them and diagnosed with malaria yesterday. I have treated and performed a rapid initial assessment of this patient. A comprehensive ED assessment and evaluation of the patient, analysis of test results and completion of medical decision making process will be conducted by additional ED providers. PHYSICAL EXAMINATION: GENERAL: Well-appearing, well-nourished and in no acute distress. A&Ox4. Answers questions appropriately. - Related Data Allergies/Adverse Reactions: No Known Allergies Allergy (Verified 11/19/19 22:37) Past Medical History - Past Medical History Cardiac Medical History: Reports: Hx Hypertension Past Surgical History: Reports: Hx Hysterectomy Physical Exam - Vital signs Vitals: Temp Pulse Resp BP Pulse Ox 98.9 F 98 16 141/92 H 98 11/19/19 21:17 11/19/19 21:17 11/19/19 21:17 11/19/19 21:17 11/19/19 21:17 Course - Vital Signs Vital signs: Temp Pulse Resp BP Pulse Ox 98.9 F 98 16 141/92 H 98 11/19/19 21:17 11/19/19 21:17 11/19/19 21:17 11/19/19 21:17 11/19/19 21:17
--- NOTE | 2019-11-19 23:12 | ER Document Report ---
Entered by SAMI GRAVES SCRIBE 11/19/19 0206 Acting as scribe for:LIBAN HAYDEN DO ED General - General Chief Complaint: Fever Stated Complaint: WEAKNESS Time Seen by Provider: 11/19/19 23:09 Mode of Arrival: Ambulatory Information source: Patient Notes: This 49 year old female patient well known to the ED presents today with complaints of multiple sick symptoms for the past x7-10 days. Patient reports weakness, fatigue, fever, nausea, vomiting, poor appetite, and cough. Patient states that she thinks she has coronavirus because she worked at [employer] with ross ents who are homeless. Patient states that "coronavirus triggered something in my system, triggered my malaria". Patient reports that she is originally from [place] and that she hasn't had malaria in x28 years; however, the last time she visited was x2 year ago. On 11/14/19, the patient was diagnosed with a viral syndrome and a fatty liver due to elevated lipase levels in addition to elevated ALYCE level. Patient states that the only reason ETOH is in her system is because her "liver is compromised". TRAVEL OUTSIDE OF THE [place] IN LAST 30 DAYS: No COUNTRY TRAVELED TO/FROM: [place] - Related Data Allergies/Adverse Reactions: No Known Allergies Allergy (Verified 11/19/19 22:37) Home Medications: [facility] Past Medical History - General Information source: Patient - Social History Smoking Status: Never Smoker Cigarette use (# per day): No Chew tobacco use (# tins/day): No Smoking Education Provided: No Family History: Reviewed & Not Pertinent Patient has suicidal ideation: No Patient has homicidal ideation: No - Past Medical History Cardiac Medical History: Reports: Hx Hypertension Past Surgical History: Reports: Hx Hysterectomy Review of Systems - Review of Systems Constitutional: See HPI, Fever, Weakness, Other - Fatigue EENT: No symptoms reported Cardiovascular: No symptoms reported Respiratory: See HPI, Cough Gastrointestinal: See HPI, Nausea, Vomiting, Poor appetite Genitourinary: No symptoms reported Female Genitourinary: No symptoms reported Musculoskeletal: See HPI, Other - Body aches Skin: No symptoms reported Hematologic/Lymphatic: No symptoms reported Neurological/Psychological: No symptoms reported -: Yes All other systems reviewed and negative Physical Exam - Vital signs Vitals: Temp Pulse Resp BP Pulse Ox 98.9 F 98 16 141/92 H 98 11/19/19 21:17 11/19/19 21:17 11/19/19 21:17 11/19/19 21:17 11/19/19 21:17 - General General appearance: Alert - HEENT Head: Normocephalic, Atraumatic Eyes: Normal Pupils: PERRL - Respiratory Respiratory status: No respiratory distress Chest status: Nontender Breath sounds: Normal Chest palpation: Normal - Cardiovascular Rhythm: Regular Heart sounds: Normal auscultation Murmur: No - Abdominal Inspection: Normal Distension: No distension Bowel sounds: Normal Tenderness: Nontender - Abdomen soft Organomegaly: No organomegaly - Back Back: Normal, Nontender - Extremities General upper extremity: Normal inspection General lower extremity: Normal inspection - Neurological Neuro grossly intact: Yes - Psychological Associated symptoms: Normal affect, Normal mood - Skin Skin Temperature: Cool - and clammy to the touch Skin Moisture: Dry Skin Color: Normal Course - Re-evaluation Re-evalutation: 11/20/19 00:30 MDM Unfortunate female has thoughts she must have cornovirus and perhaps it has been released by the malaria. I have called and spoken with the administration assistant pathologist and they assure me the final review of her slide demonstrated irregular and unusual morphology of platelets but no evidence of parasites. The pt is unhappy with this information and is hesitant to believe it. She is from [place] and was here working but presently unemployed. Labs here. 11/20/19 04:37 Her workup here is reassuring and she is not happy with that. Again concerned of coronovirus. Feel she does not need to be referred for testing based on her history and physical. She understands the follow up instructions. - Vital Signs Vital signs: Temp Pulse Resp BP Pulse Ox 98.6 F 94 16 165/104 H 99 11/20/19 03:34 11/20/19 03:34 11/20/19 03:34 11/20/19 03:34 11/20/19 03:34 - Laboratory Result Diagrams: 11/20/19 00:45 11/20/19 01:50 Laboratory results interpreted by me: 11/20/19 11/20/19 00:45 01:50 RDW 15.0 H BUN 6 L Glucose 145 H AST 634 H ALT 641 H Alkaline Phosphatase 143 H Creatine Kinase 139 H Total Protein 8.6 H Lipase 365.2 H Discharge - Discharge Clinical Impression: Weak, Cough, Myalgia Condition: Good Disposition: HOME, SELF-CARE Instructions: Acetaminophen, Fever ([facility]), Viral Syndrome ([facility]) Additional Instructions: Take tylenol or ibuprofen as needed for pain or aches. See your doctor in follow up or the referral doctor. There is no evidence of malaria based on the pathologist report. Please return here for any problems or any concerns including but not limited to chest pain, shortness of breath or other concerns you feel need to be rechecked. Prescriptions: Promethazine HCl [Phenergan 25 mg Tablet] 12.5 mg PO TID #6 tablet Tramadol HCl [Ultram] 50 mg PO TID #6 tablet Forms: Elevated Blood Pressure I personally performed the services described in the documentation, reviewed and edited the documentation which was dictated to the scribe in my presence, and it accurately records my words and actions.
[2019-11-19] MEDS ORDERED: TRAMADOL HCL 50 MG TABLET PO ONE (23:54)
[2019-11-20 01:28] LABS: ABSOLUTE EOSINOPHILS # (AUTO) 0.1 10^3/uL (0.0-0.6); ABSOLUTE LYMPHOCYTES (AUTO) 1.4 10^3/uL (0.5-4.7); ABSOLUTE MONOCYTES (AUTO) 0.3 10^3/uL (0.1-1.4); BASOPHILS % (AUTO) 0.7 % (0-2); EOSINOPHILS % (AUTO) 1.8 % (0-6); HEMATOCRIT 38.6 % (36.0-47.0); HEMOGLOBIN 13.5 g/dL (12.0-15.5); LYMPHOCYTES % (AUTO) 29.9 % (13-45); MEAN CORPUSCULAR HEMOGLOBIN 32.5 pg (27.0-33.4); MEAN CORPUSCULAR VOLUME 93 fl (80-97); MONOCYTES % (AUTO) 5.4 % (3-13); PLATELET COUNT 217 10^3/uL (150-450); RED BLOOD COUNT 4.15 10^6/uL (3.72-5.28); SEGMENTED NEUTROPHILS % (AUTO) 62.2 % (42-78); TOTAL CELLS COUNTED % (AUTO) 100 %; WHITE BLOOD COUNT 4.8 10^3/uL (4.0-10.5)
[2019-11-20 01:38] LABS: A TYPE INFLUENZA AG NEGATIVE (NEGATIVE); B INFLUENZA AG NEGATIVE (NEGATIVE); INTERNATIONAL RATION (INR) 1.02; PROTHROMBIN TIME 13.4 SEC (11.4-15.4)
[2019-11-20 02:32] LABS: ALBUMIN 4.6 g/dL (3.5-5.0); ALKALINE PHOSPHATASE 143 U/L (38-126); ANION GAP 11 (5-19); ASPARTATE AMINO TRANSFERASE 634 U/L (14-36); BILIRUBIN,DIRECT 0.1 mg/dL (0.0-0.4); BILIRUBIN,TOTAL 0.7 mg/dL (0.2-1.3); BLOOD UREA NITROGEN 6 mg/dL (7-20); CALCIUM 9.8 mg/dL (8.4-10.2); CARBON DIOXIDE 28 mmol/L (22-30); CHLORIDE 100 mmol/L (98-107); CREATINE KINASE 139 U/L (30-135); GLUCOSE 145 mg/dL (75-110); POTASSIUM 3.8 mmol/L (3.6-5.0); TOTAL PROTEIN 8.6 g/dL (6.3-8.2)
[2019-11-20 02:33] LABS: ALCOHOL < 10 mg/dL (NONE DETECTED)
[2019-11-20 02:40] LABS: APPEARANCE,URINE CLEAR; BILIRUBIN,URINE NEGATIVE (NEGATIVE); COLOR,URINE STRAW; GLUCOSE, URINE NEGATIVE (NEGATIVE); KETONES,URINE NEGATIVE (NEGATIVE); LEUKOCYTE ESTERASE,URINE NEGATIVE (NEGATIVE); NITRITE,URINE NEGATIVE (NEGATIVE); PROTEIN,URINE NEGATIVE (NEGATIVE); URINE SPECIFIC GRAVITY 1.003; UROBILINOGEN,URINE NEGATIVE mg/dL (<2.0)
[2019-11-20 02:54] LABS: URINE AMPHETAMINES SCREEN NEGATIVE; URINE BARBITURATES SCREEN NEGATIVE; URINE COCAINE SCREEN NEGATIVE; URINE MARIJUANA (THC) SCREEN NEGATIVE; URINE METHADONE SCREEN NEGATIVE; URINE PHENCYCLIDINE SCREEN NEGATIVE
[2019-11-20 03:08] LABS: URINE BENZODIAZEPINES SCREEN UNCONFIRMED POSITIVE
[2019-11-20] MEDS ORDERED: FAMOTIDINE INJ/PF 20 MG/2 ML SDV IV ONE (03:44)
[2019-11-20] MEDS ORDERED: AMLODIPINE BESYLATE 5 MG TABLET PO ONE (03:44)
[2019-11-20 05:00] VITALS: BP 154/96
--- NOTE | 2019-11-20 05:02 | RADIOLOGY REPORT (SQ) ---
Chest one view on 11/20/2019 at 4:12 AM CLINICAL INDICATION: Cough COMPARISON: 11/17/2019 FINDINGS: The lungs are clear. Cardiac, hilar and mediastinal contours are within normal limits. Pulmonary vascularity is within normal limits. No bony abnormality is noted. IMPRESSION: No active disease.
--- NOTE | 2019-11-20 11:38 | EKG REPORT ---
SEVERITY:- NORMAL ECG - SINUS RHYTHM : Confirmed by: Rosemary Pereyra 20-Nov-2019 11:37:24
== END 2019-11-20 04:58 | disposition home or self-care (01) ==
LOC: ER 21:10
DX: R53.1 Weakness (principal); R05 Cough; M79.10 Myalgia, unspecified site; R11.2 Nausea with vomiting, unspecified; R50.9 Fever, unspecified; I10 Essential (primary) hypertension; Z90.710 Acquired absence of both cervix and uterus
CPT/HCPCS: 93005; 99284; 96374; 36415; 80307 ×2; 82550; 83605; 83690; 83735; 85025; 85610; 80053; 81001; 87804; 71045; 93010; S0028